=== PATIENT | male | born 1980 | race Caucasian/White ===

== ENCOUNTER 2025-06-27 22:03 | Emergency (ER) | payer OTHER, SELFPAY ==
[2025-06-27 22:05] VITALS: BP 179/111
[2025-06-28 00:01] LABS: Urine Character Clear (Clear)
[2025-06-28] MEDS: TORADOL 15 MG IV (00:10)
--- NOTE | 2025-06-28 00:14 | ED.GENMED ---
History of Present Illness
General
Chief Complaint: Musculo-Skeletal Complaint
Source: patient
Exam Limitations: none
Time Seen by Provider: 06/27/25 23:53
Nursing documentation reviewed up to this point in time: agreed with
History of Present Illness
History of Present Illness:
Note:
CHIEF COMPLAINT(S)
Back pain/flank pain.
HISTORY OF PRESENT ILLNESS
The patient is a 44-year-old male with a history of multiple back surgeries, high blood pressure, presenting with right-sided back pain. At times, it radiates to the front of the abdomen. The back pain has been a chronic issue, notably addressed by
prior surgical interventions including a discectomy at L5-S1 in 1997 and a spinal fusion in November 2021, resulting in significant relief until recent flare-ups. He follows with [facility]. The new pain began approximately 36 hours ago and is distinct
from past symptoms, localized on the right side, and not associated with his usual back pain, which he describes as a feeling of 'locking up' and occasional leg pain and is usually located the middle to the right side. This new pain does not extend
to the groin, in contrast to triage note. He states that occasionally the pain will wrap around to the front. The pain does not get worse after meals. He is able to tolerate oral intake. He reports no nausea, vomiting, or fever. He denies chest pain
or shortness of breath. He denies recent heavy lifting or initiating factors. No trauma to the area. Current symptoms do not alter his ability to walk. Patient has no associated urinary symptoms.
PAST MEDICAL AND SURGICAL HISTORY
1. Discectomy performed at L5-S1 in 1997.
2. Spinal fusion in November 2021.
3. History of a hernia repair.
4. Current untreated inguinal hernia.
CHRONIC MEDICAL CONDITIONS SIGNIFICANTLY AFFECTING CARE
The patient has a history of hyperlipidemia and hypertension for which he is not currently on medication.
MEDICATIONS
Prednisone 40 mg initiated today for back pain flare-up. Acetaminophen taken for pain.
Dose of toradol was given by verbal order prior to my bedside evaluation
PHYSICAL EXAM
General: Alert, no acute distress.
Skin: Warm, dry.
Head: Normocephalic, atraumatic.
Neck: Supple, trachea midline.
Eye Ears, nose, mouth and throat: Oral mucosa moist.
Cardiovascular: Regular rate and rhythm, no murmurs. Normal peripheral perfusion, No edema.
Respiratory: Respirations are non-labored.
Gastrointestinal: Right sided CVA tenderness. Abdomen is soft and non-tender to palpation
Back: Normal range of motion, Normal alignment no midline spinal tenderness. Mild paralumbar tenderness bilaterally.
Musculoskeletal: Normal range of motion, normal strength.
Neurological: Alert and oriented to person, place, time, and situation, No focal neurological deficit observed.
Psychiatric: Cooperative, appropriate mood & affect.
PROBLEM LIST
Acute:
1. Right-sided flank pain
2. Chronic back pain currently flaring up.
PLAN
1. Obtain a computed tomography scan to assess for kidney stones and other intra-abdominal pathology
2. Initiate intravenous fluid administration to support hydration
3. Monitor response to Toradol for pain management.
4. Adjust pain management strategy based on CT findings and symptom evolution.
DIFFERENTIAL DIAGNOSIS
The Differential Diagnosis includes, in no particular order and is not limited to:
1. Kidney stone
2. Muscular strain
3. Appendicitis
4. Diverticulitis
5. Hernia complications
6. Renal infection
7. Pancreatitis
8. Hepatitis
9. Peptic ulcer disease
10. Gastrointestinal obstruction
CHART REVIEW
Reviewed ER physician documentation from 05/14/2015 patient seen for foot and calf pain, he had unremarkable x-ray and was discharged
Reviewed operative report from 09/27/2013 patient seen for left inguinal hernia repair
Reviewed external medical summary report, reviewed assessment from June 17, 2022 patient was found to have a soft reducible umbilical hernia for preop appointment
MDM/DISPOSITION
The patient is a 44-year-old male with a history of multiple back surgeries, high blood pressure, presenting with right-sided back pain. At times, it radiates to the front of the abdomen. The back pain has been a chronic issue, notably addressed by
prior surgical interventions including a discectomy at L5-S1 in 1997 and a spinal fusion in November 2021, resulting in significant relief until recent flare-ups.
He feels like this pain is different than his typical flareups. He has no associated fevers or chills, nausea or vomiting, urinary symptoms. On physical exam he is well-appearing in no acute distress. He has no midline spinal tenderness. He
appears to have right sided CVA tenderness on exam. Urinalysis shows occult blood. He was sent for CAT scan which showed no evidence of obstructive uropathy. Labs reviewed, no evidence of leukocytosis noted. Reviewed CMP, patient does have
elevated BUN and creatinine. His creatinine today is 1.5. His GFR is 57. There is no prior labs for comparison. Patient was able to pull up his lab work from [facility] on his cell phone. I reviewed multiple CMP's in the past and his CMP from March
2024 shows his creatinine being 1.58 and his GFR being 54. This is around his baseline. Patient states that he is being worked up by toe stripper for this. Patient takes no medication for his blood pressure. Patient has a follow-up appointment
with nephrology next week. Suspect pain musculoskeletal in nature related to ongoing lumbar disease. Discussed continuing prednisone as directed by orthopedist. Discussed tricked return precautions. Patient stable for discharge. Patient will
follow-up with PCP.
Past History
Past History
ED Past Medical History: None
ED Past Surgical History: None
Social History
Tobacco: Non-smoker
Alcohol: None
Drug: None
Living: with family
Review of Systems
Review of Systems
All Other Systems: ROS reviewed and negative except as documented in HPI and ROS
Phy Exam
Physical Exam
Physical Exam:
see hpi
Course
Orders/Labs/Results
Orders:
Orders
06/27/25 23:53
Urinalysis Reflex To Culture Urgent
Date Specimen was Collected: 06/27/25
Time Specimen was Collected: 23:51
Urine Microscopic Reflex Cult Urgent
06/28/25 00:09
Ketorolac [Toradol] 15 mg .ROUTE .STK-MED ONE
06/28/25 00:10
Ketorolac [Toradol] 15 mg IV NOW STA
06/28/25 00:13
Complete Blood Count/With Diff Urgent
Comprehensive Metabolic Panel Urgent
06/28/25 00:22
CT Abd/pel Without Iv Or Oral Urgent
Comment:
Reason For Exam: right flank pain
06/28/25 00:28
0.9% Sodium Chloride 500 ml [Nss] 500 ml IV BOLUS
Abnormal Lab Results
06/27/25 06/28/25
23:53 00:13
Abs Immat Gran (auto) 0.1 H 10^3/uL
(0-0.05)
Absolute Neuts (auto) 7.6 H 10^3/uL
(1.4-6.5)
Absolute Monos (auto) 0.9 H 10^3/uL
(0.1-0.6)
Immature Gran % 1.0 H %
(0-0.5)
Neutrophils % 76.5 H %
(42.2-75.2)
Lymphocytes % 12.7 L %
(20.5-51.1)
Monocytes % 9.4 H %
(1.7-9.3)
BUN 27 H mg/dl
(9-20)
Creatinine 1.5 H mg/dL
(0.7-1.3)
Glucose 105 H mg/dl
(70-99)
Calcium 10.3 H mg/dl
(8.4-10.2)
Albumin 5.3 H g/dl
(3.5-5.0)
Ur Occult Blood Reflex 1+ A
(Negative)
Urine Albumin (Reflex) 1+ A
(Neg - Trace)
06/28/25 00:13
06/28/25 00:13
Vital Signs
Pulse: 78
Initial and Last Documented VS:
Initial Vital Signs
Temp Pulse Resp BP Pulse Ox
97.8 F 89 22 179/111 98
06/27/25 22:05 06/27/25 22:05 06/27/25 22:05 06/27/25 22:05 06/27/25 22:05
Last Documented Vital Signs
Temp Pulse Resp BP Pulse Ox
98.4 F 78 20 115/98 97
06/28/25 01:58 06/28/25 02:03 06/28/25 01:58 06/28/25 01:58 06/28/25 01:58
*Pulse Oximetry
SaO2: 98
Oxygen Mode of Delivery: Room air
Patient hypoxic: no
*Critical Care Note
Total Time (30-74mins, 75-104mins- exclusive of procedures): Not Applicable
ED Attending Note
-
Portions of this chart may have been created with voice recognition software.� Occasional wrong word or��sound alike� substitutions may have occurred due to the inherent limitations of voice recognition software.
Discharge Plan
Departure
Patient Disposition: Home (Routine Discharge)
Date of Disposition: 06/28/25
Time of Disposition: 02:07
Patient with high blood pressure during this ER visit?: Yes
Condition: Good
Discharge Problem:
Back pain
Instructions: Back Pain, BLOOD PRESSURE
Prescriptions:
No Action
hydrocodone-acetaminophen 1 TABLET tablet
1 tab PO Q4HPRN PRN (Reason: severe pain) Qty: 15 0RF
Referrals:
UNKNOWN - PT DOES,NOT KNOW [Unknown Provider]
Activity Restrictions/Additional Instructions:
Please continue to take Prednisone as directed by your orthopedist.
Please see your toe stripper next week, blood work is attached to your discharge paperwork. Your creatinine today was 1.5, GFR 57, and BUN 27.
PLEASE RETURN TO THE ER SHOULD YOU DEVELOP AN ACUTE WORSENING OF YOUR SYMPTOMS, FEVERS OR CHILLS, INTRACTABLE NAUSEA OR VOMITING, OR ANY OTHER SIGNS OR SYMPTOMS CONCERNING TO YOU.
Interventions
Interventions:
*Risk Screen - Suicide Last Done: 06/27/25 22:05
*General Assessment Last Done: 06/27/25 22:05
*Neglect/Abuse Screening Last Done: 06/27/25 22:05
*ED- Fall Risk Assessment Last Done: 06/27/25 22:05
*ED COVID-19 Vaccine History Last Done: 06/27/25 22:05
*Nursing Disposition Last Done: 06/28/25 02:14
ED-Musculoskeletal Assessment Last Done: 06/28/25 00:15
Discharge Date and Time
Discharge Date/Time: 06/28/25 02:20
Print Language: ALBAN[place]
[2025-06-28 00:18] LABS: Urine Red Blood Cell 0-2 /HPF (0-2); Urine Squamous Cell None seen /LPF (Few); Urine White Cell None Seen /HPF (0-5)
[2025-06-28] MEDS: NSS 500 IV (00:30)
[2025-06-28 00:32] LABS: Hematocrit 44.9 % (39.0-52.0); Hemoglobin 15.6 g/dL (13.0-18.0); Mean Corp Hgb Conc. 34.7 g/dL (33.0-37.0); Mean Corpuscular Volume 82.7 fL (80.0-94.0); Nucleated Red Blood Cells % 0 % (-); Platelet Count 279 10^3/uL (130-400); Red Cell Dist. Width 12.9 % (11.5-14.5)
[2025-06-28 00:53] LABS: ALT (SGPT) 35 U/L (0-50); AST (SGOT) 25 U/L (17-59); Albumin 5.3 g/dl (3.5-5.0); Alkaline Phosphatase 54 U/L (38-126); Blood Urea Nitrogen 27 mg/dl (9-20); Calcium 10.3 mg/dl (8.4-10.2); Carbon Dioxide 24 mmol/L (22-30); Chloride 105 mmol/L (98-107); Glucose 105 mg/dl (70-99); Potassium 4.7 mmol/L (3.5-5.1); Sodium 140 mmol/L (135-145); Total Protein 8.2 g/dl (6.3-8.2); eGFR 57.79
[2025-06-28 01:58] VITALS: BP 115/98
== END 2025-06-28 02:20 | disposition home or self-care (01) ==
LOC: EMR 22:03
PROVIDERS: Physician Assistant; Student in an Organized Health Care Education/Training Program; EMERGENCY PHYSICIAN Emergency Medicine; FAMILY PHYSICIAN Internal Medicine
DX: M54.9 Dorsalgia, unspecified (principal); R10.9 Unspecified abdominal pain; E78.5 Hyperlipidemia, unspecified; I10 Essential (primary) hypertension; Z98.1 Arthrodesis status
CPT/HCPCS: 99284; 96374; 96361; 74176; 80053; 81003; 81015; 85025